=== PATIENT | female | born 1995 ===

== ENCOUNTER 2016-04-18 17:21 | Emergency (ER) | payer OTHER ==
[~2016-04-18] VITALS: Ht 162.6 cm; Wt 55.3 kg
[~2016-04-18 17:21] MED LIST: IBUP600T44 PO
[2016-04-18 17:34] VITALS: BP 116/87; PULSE 78; TEMP 37.2; O2SAT 99; Ht 162.6 cm; Wt 55.3 kg
--- NOTE | 2016-04-18 18:39 | DIAGNOSTIC IMAGING REPORT ---
RIGHT HAND 3 VIEWS CLINICAL HISTORY: Right hand injury. FINDINGS: 3 views of the right hand are obtained. No prior studies are available for comparison at the time of dictation. The skeletal structures are well mineralized. No fracture is seen. The joint spaces of the hand are well-maintained. Dorsal soft tissue edema is noted on the lateral view, greatest at the level of the metacarpal heads. IMPRESSION: Dorsal soft tissue swelling with no radiographic evidence of acute fracture. Electronically signed by: Byron Alex M.D. 04/18/2016 6:38 PM Dictated Date/Time: 04/18/2016 6:36 PM
--- NOTE | 2016-04-18 23:55 | EMERGENCY ROOM VISIT NOTE ---
ED Visit Note First contact with patient: 17:54 Chief Complaint: Right hand pain. History of Present Illness: Ms. Rosado is a 21-year-old female who ambulates into the ED accompanied by a male friend complaining of right hand pain over the second, third and fourth MCP joints. Patient reports she became mad last evening and punched a wall. Since that time she has been having pain and swelling of the right hand predominantly over the third MCP joint but the pain extends into the second and fourth MCP joint. She describes her pain as a combination of sharp and throbbing. She rates her discomfort 9/10. She has been using Tylenol without relief of her discomfort. Her pain worsens with palpation and flexion and extension of the second through fourth MCP joints. She has not identified any alleviating factors related to the pain. Associated with her pain she reports she has a mild tingling sensation in all her fingers excluding her thumb. Additionally she denies any previous significant injuries or surgeries to the right hand. Review of Systems: As noted above in history of present illness. Past Medical History: Status post cholecystectomy. Current Medications: Patient denies. Allergies to Medications: Patient denies. Social History: Patient is currently University student; she feels safe in her home environment; she denies tobacco and alcohol use. Physical Examination: Vital Signs: Date Time Temp Pulse Resp B/P Pulse Ox O2 Delivery O2 Flow Rate FiO2 04/18/16 17:34 37.2 78 18 116/87 99 Room Air GENERAL: 21-year-old female in mild to moderate distress due to pain, nontoxic- appearing, afebrile and hemodynamically stable. NEUROLOGICAL: Awake, alert and oriented to person, place and time. Answering questions appropriately and following commands. SKIN: Warm, dry and pink. No open soft tissue trauma noted. RIGHT HAND: No gross bony deformity. No tenderness over the distal forearm, wrist or hand. Moderate tenderness over the third MCP joint associated with swelling and early bruising. There is also mild tenderness over the second and fourth MCP joint without swelling, bony deformity or crepitus. Decreased range of motion in the index, middle and ring finger MCP joints. The fingers were warm and pink and capillary refill is brisk. She reported mild paresthesias during palpation but was able to distinguish light sensations. ED Course: Patient is assessed as noted above. Patient was given ice for pain and comfort; she refused pain medications multiple hands. Right Hand X-Rays: Were read by myself and the radiologist showing no acute fractures or dislocations. Patient was placed in an Ortho-Glass volar splint with fingers placed in position of comfort. Patient was educated about tonight's findings and instructed on her treatment plan; she verbalizes understanding and agreement with this plan. Clinical Impression: Right hand contusion. Disposition: Patient discharged home in stable condition accompanied by male friend; prior to departure she was reassessed and subjectively reported she was feeling better and rated her discomfort 2/10. Plan: Comfort measures were discussed with the patient. Patient was encouraged to follow-up with orthopedics if no better in 7-10 days. Patient was encouraged return ED for worsening/uncontrolled pain, uncontrolled swelling, worsening hand paresthesias, hand numbness or any new/concerning symptoms.
== END 2016-04-18 19:09 | disposition home or self-care (01) ==
LOC: C.EDB 17:23 → C.EDD 19:09
DX: S60.221A Contusion of right hand, initial encounter (principal); W22.8XXA Striking against or struck by other objects, initial encounter; Z90.49 Acquired absence of other specified parts of digestive tract

== ENCOUNTER 2016-04-27 21:21 | Emergency (ER) | payer OTHER ==
[~2016-04-27] VITALS: Ht 165.1 cm; Wt 55.2 kg
[2016-04-27 21:28] VITALS: TEMP 37.1; Ht 165.1 cm; Wt 55.2 kg
[2016-04-27] MEDS ORDERED: ONDANSETRON INJ 2 MG/ML 2 ML VIAL IV STA (22:21)
[2016-04-27] MEDS ORDERED: KETOROLAC TROMETHAMINE 30 MG/ML VIAL IV STA (22:21)
[2016-04-27] MEDS ORDERED: SODIUM CHLORIDE 0.9% 1000ML 1,000 ML IV STA (22:21)
--- NOTE | 2016-04-27 22:23 | EMERGENCY ROOM VISIT NOTE ---
History Report prepared by Shana: Pablo Horne Under the Supervision of: Dr. Timur Barrow M.D. First contact with patient: 21:38 Chief Complaint: VOMITING Stated Complaint: VOMITING Nursing Triage Summary: Patient c/o n/v that began this morning. History of Present Illness The patient is a 21 year old female who presents to the Emergency Room with complaints of vomiting that began this morning. The patient has been experiencing flu-like symptoms for the past couple of days, but came to the ED due to the vomiting. She has had rhinorrhea, a cough, and nausea. She vomits with any intake of food or fluids. Her last menstrual period was last week. She states that there is no chance she is . She denies any diarrhea. Source of History: patient Onset: this morning Position: other (GI) Symptom Intensity: mild Quality: other (vomiting) Timing: intermittent Associated Symptoms: + cough, + nausea, No diarrhea Note: She has rhinorrhea. Review of Systems See HPI for pertinent positives & negatives. A total of 10 systems reviewed and were otherwise negative. Past Medical & Surgical Medical Problems: (1) Bronchitis (2) Enteritis (3) Epigastric abdominal pain (4) Gastroenteritis (5) Leukocytosis (6) Mononucleosis (7) Nausea and vomiting in adult (8) Pancreatitis (9) Pancreatitis (10) Pancreatitis, acute (11) Vomiting Surgical Problems: (1) History of cholecystectomy Family History Hypertension Kidney disease Kidney stones Social History Smoking Status: Never Smoker Alcohol Use: none Drug Use: none Marital Status: single Housing Status: lives with roommate Occupation Status: [employer] student Current/Historical Medications Scheduled Ondasetron Odt (Zofran Odt), 4 MG SL Q6H Allergies Coded Allergies: No Known Allergies (Unverified , 02/18/16) Physical Exam Vital Signs Date Time Temp Pulse Resp B/P Pulse Ox O2 Delivery O2 Flow Rate FiO2 04/27/16 23:30 87 20 88/50 96 Room Air 04/27/16 21:28 37.1 104 18 101/64 96 Room Air Physical Exam GENERAL: Patient is a healthy-appearing well-nourished HEAD: Normocephalic atraumatic EYES: Ocular movements intact pupils equal and react to light OROPHARYNX mucous membranes are moist no exudates present no erythema or edema present NECK: Supple no nuchal rigidity CHEST: Good equal expansion LUNGS: Clear and equal to auscultation CARDIAC: Normal S1 and S2 ABDOMEN: Soft nontender no guarding BACK: No CVA tenderness EXTREMITIES: No pain upon palpation normal muscle strength in all groups no clubbing cyanosis or edema NEURO: Patient is following commands is answering questions appropriately. Alert and oriented x3 Cranial Nerves 2-12 grossly intact Medical Decision & Procedures ER Provider Diagnostic Interpretation: X-ray results as stated below per interpretation by me: 1 View Chest: No evidence of pneumonia, congestion, or pneumothorax. 2 View Abdomen: No evidence of free air. No obstruction. Moderate amount of stool throughout the colon. Laboratory Results 04/27/16 22:27 Red Blood Count 4.93, Mean Corpuscular Volume 84.2, Mean Corpuscular Hemoglobin 27.6, Mean Corpuscular Hemoglobin Concent 32.8, Mean Platelet Volume 10.6, Neutrophils (%) (Auto) 64.9, Lymphocytes (%) (Auto) 20.1, Monocytes (%) (Auto) 12.5, Eosinophils (%) (Auto) 2.0, Basophils (%) (Auto) 0.3, Neutrophils # (Auto ) 3.90, Lymphocytes # (Auto) 1.21, Monocytes # (Auto) 0.75, Eosinophils # (Auto ) 0.12, Basophils # (Auto) 0.02 04/27/16 22:27 Test 04/27/16 00:00 04/27/16 22:27 Urine Color YELLOW Urine Appearance TURBID (CLEAR) Urine pH >= 9.0 (4.5-7.5) Urine Specific [place] 1.022 (1.000-1.030) Urine Protein NEG (NEG) Urine Glucose (UA) NEG (NEG) Urine Ketones NEG (NEG) Urine Occult Blood NEG (NEG) Urine Nitrite NEG (NEG) Urine Bilirubin NEG (NEG) Urine Urobilinogen NEG (NEG) Urine Leukocyte Esterase NEG (NEG) Urine WBC (Auto) 1-5 /hpf (0-5) Urine RBC (Auto) 0-4 /hpf (0-4) Urine Hyaline Casts (Auto) 1-5 /lpf (0-5) Urine Epithelial Cells (Auto) >30 /lpf (0-5) Urine Bacteria (Auto) NEG (NEG) Urine Test NEG (NEG) White Blood Count 6.01 K/uL (4.8-10.8) Red Blood Count 4.93 M/uL (4.2-5.4) Hemoglobin 13.6 g/dL (12.0-16.0) Hematocrit 41.5 % (37-47) Mean Corpuscular Volume 84.2 fL (80-100) Mean Corpuscular Hemoglobin 27.6 pg (25-34) Mean Corpuscular Hemoglobin Concent 32.8 g/dl (32-36) Platelet Count 240 K/uL (130-400) Mean Platelet Volume 10.6 fL (7.4-10.4) Neutrophils (%) (Auto) 64.9 % Lymphocytes (%) (Auto) 20.1 % Monocytes (%) (Auto) 12.5 % Eosinophils (%) (Auto) 2.0 % Basophils (%) (Auto) 0.3 % Neutrophils # (Auto) 3.90 K/uL (1.4-6.5) Lymphocytes # (Auto) 1.21 K/uL (1.2-3.4) Monocytes # (Auto) 0.75 K/uL (0.11-0.59) Eosinophils # (Auto) 0.12 K/uL (0-0.5) Basophils # (Auto) 0.02 K/uL (0-0.2) RDW Standard Deviation 39.5 fL (36.4-46.3) RDW Coefficient of Variation 13.0 % (11.5-14.5) Immature Granulocyte % (Auto) 0.2 % Immature Granulocyte # (Auto) 0.01 K/uL (0.00-0.02) Anion Gap 9.0 mmol/L (3-11) Est Creatinine Clear Calc Drug Dose 102.9 ml/min Estimated GFR () 130.9 Estimated GFR (Non- 112.9 BUN/Creatinine Ratio 13.8 (10-20) Calcium Level 8.7 mg/dl (8.5-10.1) Total Bilirubin 0.3 mg/dl (0.2-1) Direct Bilirubin < 0.1 mg/dl (0-0.2) Aspartate Amino Transf (AST/SGOT) 13 U/L (15-37) Alanine Aminotransferase (ALT/SGPT) 17 U/L (12-78) Alkaline Phosphatase 46 U/L (45-117) Total Protein 7.1 gm/dl (6.4-8.2) Albumin 3.6 gm/dl (3.4-5.0) Lipase 167 U/L (73-393) Labs reviewed by ED physician. Medications Administered Medications (Trade) Dose Ordered Sig/Jenni Route Start Time Stop Time Status Last Admin Dose Admin Sodium Chloride (Nss 1000ml) 1,000 ml @ 999 mls/hr Q1H1M STAT IV 04/27/16 22:21 04/27/16 23:21 DC 04/27/16 22:40 999 MLS/HR Ketorolac Tromethamine (Toradol Inj) 30 mg NOW STAT IV 04/27/16 22:21 04/27/16 22:22 DC 04/27/16 22:40 30 MG Ondansetron HCl (Zofran Inj) 4 mg NOW STAT IV 04/27/16 22:21 04/27/16 22:22 DC 04/27/16 22:41 4 MG Ondansetron HCl (ZOFRAN ODT 4MG Home Pack) 1 homepack UD ONCE PO 04/27/16 23:30 04/27/16 23:31 DC 04/27/16 23:50 1 HOMEPACK ED Course 2138: Past medical records reviewed. The patient was evaluated in room B4. A complete history and physical examination was performed. 2221: Zofran Inj 4 mg IV, Toradol Inj 30 mg IV, Sodium Chloride 1000 ml @ 999 mls/hr IV 2330: Ondansetron HCl 1 homepack PO 2335: Upon reexamination the patient is resting. I discussed results and treatment plan with the patient. She verbalizes agreement and understanding. The patient is ready for discharge. Medical Decision Differential diagnosis: Etiologies such as appendicitis, diverticulitis, PUD, biliary pathology, UTI, pancreatitis, obstruction, mesenteric ischemia, aortic pathology, infections, inflammatory bowel disease, renal colic, as well as others were entertained. This is a 21-year-old female who presents emergency department complaining of nausea and vomiting. The patient was given normal saline bolus, Toradol Zofran in the emergency department. Repeat examination revealed much improvement patient's symptoms. The patient had serial abdominal examinations were performed on her in the emergency department and at no time did the patient exhibits abdominal tenderness. Based on these findings and using shared medical decision making the decision was made not to CAT scan the patient's abdomen due to the effects of radiation. In addition the patient has a normal urine, she is not , she does not have an elevation in her white blood count she has a normal liver kidney profile. The patient was able tolerate by mouth Gatorade in the emergency department. I believe she is well enough to be discharged home with Zofran. Patient was in agreement with the treatment plan. Impression Primary Impression: Vomiting Scribe Attestation The scribe's documentation has been prepared under my direction and personally reviewed by me in its entirety. I confirm that the note above accurately reflects all work, treatment, procedures, and medical decision making performed by me. Departure Information Dispostion Home / Self-Care Prescriptions Ondasetron Odt (ZOFRAN ODT) 4 Mg Tab 4 MG SL Q6H for Nausea, #6 TAB Prov: Timur Barrow MD 04/27/16 Referrals No Doctor, Assigned (PCP) Forms HOME CARE DOCUMENTATION FORM, IMPORTANT VISIT INFORMATION, School Instructions, Work Instructions Patient Instructions ED Diet Vomiting Diarrhea, ED Gastroenteritis Viral, [facility], Ondansetron Hydrochloride Oral tablet Additional Instructions You have been examined and treated today on an emergency basis only. This is not a substitute for, or an effort to provide, complete comprehensive medical care. It is impossible to recognize and treat all injuries or illnesses in a single emergency department visit. It is therefore important that you follow up closely with your PCP. Call as soon as possible for an appointment. Thank you for your time and consideration. I look forward to speaking with you again soon. Please don't hesitate to call us if you have any questions. Problem Qualifiers Primary Impression: Vomiting Vomiting type: unspecified Vomiting Intractability: non-intractable Nausea presence: with nausea Qualified Codes: R11.2 - Nausea with vomiting, unspecified
[2016-04-27 22:48] LABS: BASO % 0.3 %; BASO ABS # 0.02 K/uL (0-0.2); COMPLETE YES; HEMATOCRIT 41.5 % (37-47); IG% 0.2 %; LYMPH % 20.1 %; LYMPH ABS # 1.21 K/uL (1.2-3.4); MEAN CELL VOLUME 84.2 fL (80-100); MEAN CORPUSCULAR HEMOGLOBIN 27.6 pg (25-34); MEAN CORPUSCULAR HGB CONC 32.8 g/dl (32-36); MEAN PLATELET VOLUME 10.6 fL (7.4-10.4); MONO % 12.5 %; NEUT % 64.9 %; PLATELET COUNT 240 K/uL (130-400); RED BLOOD COUNT 4.93 M/uL (4.2-5.4); WHITE BLOOD COUNT 6.01 K/uL (4.8-10.8)
[2016-04-27 23:01] LABS: ALT/SGPT 17 U/L (12-78); BLOOD UREA NITROGEN 11 mg/dl (7-18); BUN/CREATININE RATIO 13.8 (10-20); CALCIUM 8.7 mg/dl (8.5-10.1); CARBON DIOXIDE 27 mmol/L (21-32); CHLORIDE 106 mmol/L (98-107); CREATININE 0.76 mg/dl (0.60-1.20); GLUCOSE 98 mg/dl (70-99); POTASSIUM 3.7 mmol/L (3.5-5.1); SODIUM 142 mmol/L (136-145)
[2016-04-27 23:04] LABS: ALKALINE PHOSPHATASE 46 U/L (45-117); AST/SGOT 13 U/L (15-37)
[2016-04-27 23:10] LABS: URINE APPEARANCE TURBID (CLEAR); URINE BILIRUBIN NEG (NEG); URINE COLOR YELLOW; URINE EPITHELIAL CELL AUTO >30 /lpf (0-5); URINE NITRITE NEG (NEG); URINE PH >= 9.0 (4.5-7.5); URINE SPECIFIC GRAVITY 1.022 (1.000-1.030); UROBILINOGEN NEG (NEG)
[2016-04-27 23:13] LABS: MANUAL MICROSCOPIC REQUIRED? NO; REVIEW REQ? NO
[2016-04-27] MEDS ORDERED: ONDA4TAB10 SL (23:27)
[2016-04-27 23:30] VITALS: BP 88/50; PULSE 87; O2SAT 96
[2016-04-27] MEDS ORDERED: ONDANSETRON HOME PACK 4MG OD TAB PO ONE (23:30)
--- NOTE | 2016-04-28 07:00 | DIAGNOSTIC IMAGING REPORT ---
ABDOMEN 2VIEW W/PA CHEST RTN CLINICAL HISTORY: Epigastric pain, nausea, vomiting, diarrhea. COMPARISON STUDY: Chest x-ray dated 02/18/2016 FINDINGS: The erect chest reveals no evidence of free air. There is no evidence of focal pulmonary consolidation.] Erect and supine views of the abdomen reveal no abnormally dilated loops of large or small bowel. There are no transition zone to indicate bowel obstruction. There are surgical clips within the right upper abdomen medially. There is a mild scoliosis. IMPRESSION: No evidence of bowel obstruction. No evidence of free air. Electronically signed by: Corwin Douglas M.D. 04/28/2016 6:58 AM Dictated Date/Time: 04/28/2016 6:58 AM
== END 2016-04-27 23:55 | disposition home or self-care (01) ==
LOC: C.EDB 21:23
DX: R11.2 Nausea with vomiting, unspecified (principal)

== ENCOUNTER 2016-08-09 01:43 | Inpatient (IN) | payer OTHER ==
[~2016-08-09] VITALS: Ht 165.1 cm; Wt 55.9 kg
[~2016-08-09 01:43] MED LIST changes: -IBUP600T44 PO; +ONDA4TAB10 SL
[2016-08-09] MEDS ORDERED: ONDANSETRON INJ 2 MG/ML 2 ML VIAL IV STA ×2 (02:09→05:28)
[2016-08-09] MEDS ORDERED: MoRPHine SULFATE 4 MG/ML 1 ML CARP\\VIAL IV ONE (02:15)
[2016-08-09] MEDS ORDERED: SODIUM CHLORIDE 0.9% 1000ML 1,000 ML IV ONE (02:15)
[2016-08-09 02:30] LABS: BASO % 0.2 %; BASO ABS # 0.02 K/uL (0-0.2); COMPLETE YES; EOS % 1.3 %; HEMATOCRIT 40.5 % (37-47); IG% 0.2 %; LYMPH ABS # 2.55 K/uL (1.2-3.4); MEAN CELL VOLUME 85.6 fL (80-100); MEAN CORPUSCULAR HEMOGLOBIN 28.1 pg (25-34); MEAN CORPUSCULAR HGB CONC 32.8 g/dl (32-36); MEAN PLATELET VOLUME 10.5 fL (7.4-10.4); MONO % 8.5 %; NEUT % 60.8 %; PLATELET COUNT 223 K/uL (130-400); RED BLOOD COUNT 4.73 M/uL (4.2-5.4); WHITE BLOOD COUNT 8.79 K/uL (4.8-10.8)
[2016-08-09 02:43] LABS: URINE APPEARANCE CLOUDY (CLEAR); URINE BILIRUBIN NEG (NEG); URINE COLOR DK YELLOW; URINE EPITHELIAL CELL AUTO >30 /lpf (0-5); URINE NITRITE NEG (NEG); URINE SPECIFIC GRAVITY 1.027 (1.000-1.030); UROBILINOGEN NEG (NEG); ZZUR CULT IF INDIC CLEAN CATCH NO
[2016-08-09 02:45] LABS: MANUAL MICROSCOPIC REQUIRED? NO; REVIEW REQ? YES
[2016-08-09 02:49] LABS: BUN/CREATININE RATIO 9.6 (10-20); CALCIUM 8.3 mg/dl (8.5-10.1); CREATININE 0.72 mg/dl (0.60-1.20); POTASSIUM 3.7 mmol/L (3.5-5.1)
[2016-08-09 02:52] LABS: ALB/GLOB RATIO 1.2 (0.9-2)
[2016-08-09 02:57] LABS: URINE MUCUS PRESENT (NONE PRSENT)
[2016-08-09] MEDS ORDERED: OPTIRAY 320 IV PRN (04:15)
--- NOTE | 2016-08-09 05:27 | EMERGENCY ROOM VISIT NOTE ---
History First contact with patient: 01:53 Chief Complaint: NAUSEA Stated Complaint: NAUSEA Nursing Triage Summary: Pt presents with sudden onset of N/V abdominal pain starting at 2000 last night. History of Present Illness The patient is a 21 year old female who presents to the Emergency Room with complaints of acute onset nausea, vomiting, and epigastric abdominal pain that began about 6 hours ago. The patient has a history of pancreatitis in the past. She is status post cholecystectomy a few years ago. She has not had fever or chills. Her vomiting is primarily water. She does not have lower abdominal pain. She denies chance of . She rates her discomfort a 7/ 10. Review of Systems More than 10 systems were reviewed and otherwise negative with the exception of history of present illness. Past Medical/Surgical History Medical Problems: (1) Bronchitis (2) Enteritis (3) Epigastric abdominal pain (4) Gastroenteritis (5) Leukocytosis (6) Mononucleosis (7) Nausea and vomiting in adult (8) Pancreatitis (9) Pancreatitis (10) Pancreatitis, acute (11) Vomiting Surgical Problems: (1) History of cholecystectomy Family History Hypertension Kidney disease Kidney stones Social History Smoking Status: Never Smoker Alcohol Use: none Drug Use: none Marital Status: single Housing Status: lives with roommate Occupation Status: [employer] student Current/Historical Medications No Active Prescriptions or Reported Meds Allergies Coded Allergies: No Known Allergies (Unverified , 08/09/16) Physical Exam Vital Signs Date Time Temp Pulse Resp B/P (MAP) Pulse Ox O2 Delivery O2 Flow Rate FiO2 08/09/16 05:16 80 18 119/58 97 Room Air 08/09/16 03:18 75 18 99/51 95 Room Air 08/09/16 01:47 36.9 90 18 110/69 96 Room Air Physical Exam VITALS: Vitals are noted on the nurse's note and reviewed by myself. Vital signs stable. GENERAL: Well-developed, well-nourished, female who is mildly uncomfortable appearing. Patient is cooperative with the examination. HEAD: Normocephalic atraumatic. HEART: Regular rate and rhythm without murmurs gallops or rubs. LUNGS: Clear to auscultation bilaterally without wheezes, rales or rhonchi. No retractions or accessory muscle use. ABDOMEN: Positive normal bowel sounds x 4. Soft with epigastric abdominal pain. No CVA tenderness. No lower abdominal tenderness. MUSCULOSKELETAL: No muscle atrophy, erythema, or edema noted. Full range of motion without joint tenderness in all extremities. Medical Decision & Procedures Laboratory Results 08/09/16 02:20 Red Blood Count 4.73, Mean Corpuscular Volume 85.6, Mean Corpuscular Hemoglobin 28.1, Mean Corpuscular Hemoglobin Concent 32.8, Mean Platelet Volume 10.5, Neutrophils (%) (Auto) 60.8, Lymphocytes (%) (Auto) 29.0, Monocytes (%) (Auto) 8.5, Eosinophils (%) (Auto) 1.3, Basophils (%) (Auto) 0.2, Neutrophils # (Auto) 5.34, Lymphocytes # (Auto) 2.55, Monocytes # (Auto) 0.75, Eosinophils # (Auto) 0.11, Basophils # (Auto) 0.02 08/09/16 02:20 Test 08/09/16 02:20 White Blood Count 8.79 K/uL (4.8-10.8) Red Blood Count 4.73 M/uL (4.2-5.4) Hemoglobin 13.3 g/dL (12.0-16.0) Hematocrit 40.5 % (37-47) Mean Corpuscular Volume 85.6 fL (80-100) Mean Corpuscular Hemoglobin 28.1 pg (25-34) Mean Corpuscular Hemoglobin Concent 32.8 g/dl (32-36) Platelet Count 223 K/uL (130-400) Mean Platelet Volume 10.5 fL (7.4-10.4) Neutrophils (%) (Auto) 60.8 % Lymphocytes (%) (Auto) 29.0 % Monocytes (%) (Auto) 8.5 % Eosinophils (%) (Auto) 1.3 % Basophils (%) (Auto) 0.2 % Neutrophils # (Auto) 5.34 K/uL (1.4-6.5) Lymphocytes # (Auto) 2.55 K/uL (1.2-3.4) Monocytes # (Auto) 0.75 K/uL (0.11-0.59) Eosinophils # (Auto) 0.11 K/uL (0-0.5) Basophils # (Auto) 0.02 K/uL (0-0.2) RDW Standard Deviation 41.2 fL (36.4-46.3) RDW Coefficient of Variation 13.1 % (11.5-14.5) Immature Granulocyte % (Auto) 0.2 % Immature Granulocyte # (Auto) 0.02 K/uL (0.00-0.02) Urine Color DK YELLOW Urine Appearance CLOUDY (CLEAR) Urine pH 6.0 (4.5-7.5) Urine Specific [place] 1.027 (1.000-1.030) Urine Protein NEG (NEG) Urine Glucose (UA) NEG (NEG) Urine Ketones TRACE (NEG) Urine Occult Blood NEG (NEG) Urine Nitrite NEG (NEG) Urine Bilirubin NEG (NEG) Urine Urobilinogen NEG (NEG) Urine Leukocyte Esterase NEG (NEG) Urine WBC (Auto) 1-5 /hpf (0-5) Urine RBC (Auto) 5-10 /hpf (0-4) Urine Hyaline Casts (Auto) 10-30 /lpf (0-5) Urine Epithelial Cells (Auto) >30 /lpf (0-5) Urine Bacteria (Auto) NEG (NEG) Urine Pathogenic Casts /lpf (0) Urine Mucus PRESENT (NONE PRSENT) Urine Test NEG (NEG) Anion Gap 8.0 mmol/L (3-11) Est Creatinine Clear Calc Drug Dose 110.0 ml/min Estimated GFR () 139.7 Estimated GFR (Non- 120.6 BUN/Creatinine Ratio 9.6 (10-20) Calcium Level 8.3 mg/dl (8.5-10.1) Total Bilirubin 0.4 mg/dl (0.2-1) Aspartate Amino Transf (AST/SGOT) 31 U/L (15-37) Alanine Aminotransferase (ALT/SGPT) 26 U/L (12-78) Alkaline Phosphatase 41 U/L (45-117) Total Protein 6.7 gm/dl (6.4-8.2) Albumin 3.6 gm/dl (3.4-5.0) Globulin 3.1 gm/dl (2.5-4.0) Albumin/Globulin Ratio 1.2 (0.9-2) Amylase Level 172 U/L (25-115) Lipase 2209 U/L (73-393) Medications Administered Medications (Trade) Dose Ordered Sig/Jenni Route Start Time Stop Time Status Last Admin Dose Admin Sodium Chloride 1,000 ml @ 999 mls/hr Q1H1M ONCE IV 08/09/16 02:15 08/09/16 03:15 DC 08/09/16 02:28 999 MLS/HR Ondansetron HCl (Zofran Inj) 4 mg NOW STAT IV 08/09/16 02:09 08/09/16 02:10 DC 08/09/16 02:28 4 MG ED Course Physical exam and history were performed. Nursing notes and EMR were reviewed. Patient appears to have epigastric abdominal pain for the past several hours. She has a history of pancreatitis and states this feels similar to previous episodes. IV access was established and labs were obtained. The patient was hydrated and medicated as above. The patient's blood work is without a significantly elevated white blood cell count, gross anemia, or significant electrolyte imbalance. Her amylase and lipase are elevated which is consistent with acute pancreatitis. Clinically this does correlate with the patient's discomfort. Overall the patient does not appear stable for discharge home. Her case was discussed with the on-call hospitalist, who agreed to evaluate her here in the department. Please see their dictation for further patient course, plan, and disposition. The chart was completed utilizing [employer] Speech Voice Recognition Software. Grammatical errors, random word insertions, pronoun errors, and incomplete sentences are an occasional consequence of this system due to software limitations, ambient noise, and hardware issues. Any formal questions or concerns about the content, text, or information contained within the body of this dictation should be directly addressed to the provider for clarification. . Medical Decision Differential diagnosis: Etiologies such as appendicitis, diverticulitis, PUD, biliary pathology, UTI, pancreatitis, obstruction, mesenteric ischemia, aortic pathology, infections, inflammatory bowel disease, renal colic, as well as others were entertained. Impression Primary Impression: Pancreatitis, acute Departure Information Prescriptions No Active Prescriptions or Reported Meds Referrals No Doctor, Assigned (PCP) [facility] Instructions [facility]
[2016-08-09] MEDS ORDERED: ACETAMINOPHEN 325 MG TAB PO PRN (05:45)
[2016-08-09] MEDS ORDERED: KETOROLAC TROMETHAMINE 30 MG/ML VIAL IV PRN (05:45)
[2016-08-09] MEDS ORDERED: MoRPHine SULFATE 2 MG/ML CARP IV PRN (05:45)
[2016-08-09] MEDS ORDERED: ONDANSETRON INJ 2 MG/ML 2 ML VIAL IV PRN (05:45)
[2016-08-09] MEDS ORDERED: MoRPHine SULFATE 4 MG/ML 1 ML CARP\\VIAL IV PRN (05:45)
--- NOTE | 2016-08-09 05:49 | History and Physical ---
History & Physical Date & Time of Service: Aug 09, 2016 at 05:41 Chief Complaint: Nausea Primary Care Physician: No Doctor, Assigned History of Present Illness Source: patient The patient is a 21-year-old female who developed acute onset of nausea, vomiting and abdominal pain about 6 hours prior to arrival. She has a past medical history of cholecystectomy in March 2014, which at that time had associated pancreatitis. She has had a few cases of pancreatitis since that time, but her symptoms today along with elevated pancreatic enzymes are the most significant since her cholecystectomy. She has not had any different food intakes, she has not had any recent travel or any sick exposures. Past Medical/Surgical History Medical Problems: (1) Bronchitis Status: Resolved (2) Epigastric abdominal pain Status: Resolved (3) Leukocytosis Status: Resolved (4) Mononucleosis Status: Resolved (5) Nausea and vomiting in adult Status: Resolved (6) Pancreatitis Status: Chronic (7) Pancreatitis Status: Chronic (8) Pancreatitis, acute Status: Chronic (9) Vomiting Status: Resolved Surgical Problems: (1) History of cholecystectomy Status: Resolved Family History Hypertension Kidney disease Kidney stones Social History Smoking Status: Never Smoker Smokeless Tobacco Use: No Alcohol Use: none Drug Use: none Marital Status: single Occupational Status: [employer] student Multi-Drug Resistant Organisms History of MDRO: No Allergies Coded Allergies: No Known Allergies (Unverified , 08/09/16) Home Medications No Active Prescriptions or Reported Meds Review of Systems The patient denies chest pain, palpitations, shortness of breath, cough, lower extremity swelling, vision change, hearing change, sore throat, fevers, chills, sweats, weight change, fatigue, blood in urine or stool, dysuria, urinary frequency or urgency, lightheadedness, dizziness, headache, memory loss, rash, abnormal bruising or bleeding, imbalance, focal or generalized weakness, numbness or tingling in arms or legs, arthralgias or myalgias, back or neck pain , night sweats, or allergy symptoms. The review of systems is otherwise negative other than for that already noted above, and at least 10 systems have been reviewed. Physical Exam Vital Signs Date Time Temp Pulse Resp B/P (MAP) Pulse Ox O2 Delivery O2 Flow Rate FiO2 08/09/16 05:16 80 18 119/58 97 Room Air 08/09/16 03:18 75 18 99/51 95 Room Air 08/09/16 01:47 36.9 90 18 110/69 96 Room Air The patient is awake, well-developed and adequately nourished, alert and oriented 3, normocephalic and atraumatic, lying in bed and in no acute distress. HEENT--PERRL, EOMI, mucous membranes and oropharynx dry. Neck--supple, no JVD or bruits, thyroid normal, trachea midline, no adenopathy. Heart--normal S1 and S2, no extra beats, no murmurs, rubs or gallops. Lungs--clear bilaterally with good air movement, no respiratory distress, no accessory muscle use. Abdomen--normal bowel sounds and soft, mildly tender epigastric area, nondistended, no hernias or masses, no organomegaly. Extremities--no cyanosis, clubbing or edema. There are good distal pulses b/l. Dermatologic--normal skin turgor, normal color, warm and dry, no abnormal lymph nodes, no rash. Neurologic--cranial nerves II through XII grossly intact, motor and sensory examination normal. Rheumatologic--normal range of motion, nontender, muscles and joints. Psychiatric--normal affect. Diagnostics Laboratory Results Results Past 24 Hours Test 08/09/16 02:20 Range/Units White Blood Count 8.79 4.8-10.8 K/uL Red Blood Count 4.73 4.2-5.4 M/uL Hemoglobin 13.3 12.0-16.0 g/dL Hematocrit 40.5 37-47 % Mean Corpuscular Volume 85.6 80-100 fL Mean Corpuscular Hemoglobin 28.1 25-34 pg Mean Corpuscular Hemoglobin Concent 32.8 32-36 g/dl Platelet Count 223 130-400 K/uL Mean Platelet Volume 10.5 7.4-10.4 fL Neutrophils (%) (Auto) 60.8 % Lymphocytes (%) (Auto) 29.0 % Monocytes (%) (Auto) 8.5 % Eosinophils (%) (Auto) 1.3 % Basophils (%) (Auto) 0.2 % Neutrophils # (Auto) 5.34 1.4-6.5 K/uL Lymphocytes # (Auto) 2.55 1.2-3.4 K/uL Monocytes # (Auto) 0.75 0.11-0.59 K/uL Eosinophils # (Auto) 0.11 0-0.5 K/uL Basophils # (Auto) 0.02 0-0.2 K/uL RDW Standard Deviation 41.2 36.4-46.3 fL RDW Coefficient of Variation 13.1 11.5-14.5 % Immature Granulocyte % (Auto) 0.2 % Immature Granulocyte # (Auto) 0.02 0.00-0.02 K/uL Urine Color DK YELLOW Urine Appearance CLOUDY CLEAR Urine pH 6.0 4.5-7.5 Urine Specific [place] 1.027 1.000-1.030 Urine Protein NEG NEG Urine Glucose (UA) NEG NEG Urine Ketones TRACE NEG Urine Occult Blood NEG NEG Urine Nitrite NEG NEG Urine Bilirubin NEG NEG Urine Urobilinogen NEG NEG Urine Leukocyte Esterase NEG NEG Urine WBC (Auto) 1-5 0-5 /hpf Urine RBC (Auto) 5-10 0-4 /hpf Urine Hyaline Casts (Auto) 10-30 0-5 /lpf Urine Epithelial Cells (Auto) >30 0-5 /lpf Urine Bacteria (Auto) NEG NEG Urine Pathogenic Casts 0 /lpf Urine Mucus PRESENT NONE PRSENT Urine Test NEG NEG Sodium Level 143 136-145 mmol/L Potassium Level 3.7 3.5-5.1 mmol/L Chloride Level 109 98-107 mmol/L Carbon Dioxide Level 26 21-32 mmol/L Anion Gap 8.0 3-11 mmol/L Blood Urea Nitrogen 7 7-18 mg/dl Creatinine 0.72 0.60-1.20 mg/dl Est Creatinine Clear Calc Drug Dose 110.0 ml/min Estimated GFR () 139.7 Estimated GFR (Non- 120.6 BUN/Creatinine Ratio 9.6 10-20 Random Glucose 80 70-99 mg/dl Calcium Level 8.3 8.5-10.1 mg/dl Total Bilirubin 0.4 0.2-1 mg/dl Aspartate Amino Transf (AST/SGOT) 31 15-37 U/L Alanine Aminotransferase (ALT/SGPT) 26 12-78 U/L Alkaline Phosphatase 41 45-117 U/L Total Protein 6.7 6.4-8.2 gm/dl Albumin 3.6 3.4-5.0 gm/dl Globulin 3.1 2.5-4.0 gm/dl Albumin/Globulin Ratio 1.2 0.9-2 Amylase Level 172 25-115 U/L Lipase 2209 73-393 U/L Impression Assessment and Plan Recurrent pancreatitis--the patient will be admitted to the medical surgical floor. She'll be primarily kept nothing by mouth, with occasional sips of clear liquid. She is status post cholecystectomy in March 2014, which did help relieve a significant portion of her episodes of pancreatitis. CT of the abdomen and pelvis is negative, other than for the possibility of enteritis. We will order an MRCP to assess for possible choledocholithiasis. We'll consult gastroenterology. We'll place on normal saline with potassium chloride 20 mEq at 100 ML's per hour, Zofran 4 mg IV every 6 hours when necessary, Toradol 30 mg IV every 6 hours when necessary, morphine sulfate 2-4 mg IV every 2 hours when necessary. Level of Care Med/Surg Advanced Directives Existing Advance Directive: No Existing Living Will: No Existing Power of Site Promotion Agent: No Resuscitation Status FULL RESUSCITATION VTE Prophylaxis VTE Risk Assessment Done? Y/N: Yes Risk Level: Low Given or contraindicated: SCD's Social Service Consult None Apply
[2016-08-09 06:07] VITALS: BP 113/70; PULSE 88; TEMP 36.8; Ht 165.1 cm; Wt 55.9 kg
--- NOTE | 2016-08-09 07:09 | DIAGNOSTIC IMAGING REPORT ---
CT SCAN OF THE ABDOMEN AND PELVIS WITH IV CONTRAST CLINICAL HISTORY: Generalized abdominal pain. Nausea and vomiting. COMPARISON STUDY: Abdominal radiographs dated 08/09/2016. Abdominal CT dated 12/26/2015. TECHNIQUE: Following the IV administration of 93 cc of Optiray 320, CT scan of the abdomen and pelvis is performed from the lung bases to the proximal femora. Images are reviewed in the axial, sagittal, and coronal planes. IV contrast was administered without complication. Automated dose control exposure was utilized. CT DOSE: 281.19 mGy.cm FINDINGS: Lung bases: The heart is normal in size and without pericardial effusion. The lung bases are clear. Liver: The contrast-enhanced liver is normal in size, contour, and attenuation. There is no intrahepatic biliary ductal dilatation. The hepatic veins and portal veins are patent. Gallbladder: Surgically absent noting clips in the gallbladder fossa. Spleen: Normal in size and attenuation. Pancreas: Unremarkable. Adrenal glands: Unremarkable. Kidneys: The contrast enhanced kidneys are normal in size and without hydronephrosis. The kidneys enhance symmetrically. Abdominal vasculature: The abdominal aorta is normal in course and caliber. Bowel: The small bowel and colon are normal in course and caliber. The appendix is well-visualized and normal. Peritoneum: There is no intraperitoneal free air or abdominal ascites. Lymphadenopathy: None. Pelvic viscera: The bladder is normal as visualized. A bicornuate or septate uterus is suggested. No adnexal lesion is seen. There small bilateral ovarian follicles. Free fluid is seen in the cul-de-sac. Skeletal structures: No lytic or blastic lesions are seen. IMPRESSION: 1. There are no acute infectious or inflammatory findings in the abdomen or pelvis. 2. There is a small volume of free fluid in the cul-de-sac, likely within physiologic limits. 3. A bicornuate or septated uterus is suggested. Electronically signed by: Byron Alex M.D. 08/09/2016 7:08 AM Dictated Date/Time: 08/09/2016 7:04 AM
--- NOTE | 2016-08-09 07:38 | DIAGNOSTIC IMAGING REPORT ---
PA CHEST WITH ABDOMINAL SERIES CLINICAL HISTORY: Epigastric abdominal pain. Nausea. FINDINGS: A PA chest radiograph is compared to study dated . The cardiomediastinal silhouette is unremarkable. The lungs and pleural spaces are clear. No pneumothorax is seen. The bony thorax is grossly intact. Supine and erect abdominal radiograph are correlated with abdominal CT dated 12/26/2015. There is a nonobstructed abdominal bowel gas pattern. No evidence of intraperitoneal free air is seen. There are no abnormal abdominal calcifications. Mild to moderate colonic fecal retention is observed. Cholecystectomy clips are identified. The lumbosacral spine and bony pelvis appear intact. IMPRESSION: 1. No active disease in the chest. 2. Nonobstructed abdominal bowel gas pattern. Electronically signed by: Byron Alex M.D. 08/09/2016 7:36 AM Dictated Date/Time: 08/09/2016 7:35 AM
[2016-08-09 08:06] VITALS: BP 92/59; PULSE 74; TEMP 36.8; O2SAT 99
[2016-08-09 08:45] VITALS: O2SAT 99
[2016-08-09] MEDS: NSS + 20MEQ KCL 1000ML 1,000 ML IV SCH ×2 (08:45→16:11)
[2016-08-09] MEDS: PANTOprazole INJ 40 MG in SYRINGE 0 ML IV SCH (11:29)
[2016-08-09 12:23] VITALS: BP 88/54; PULSE 69; TEMP 36.7; O2SAT 98
--- NOTE | 2016-08-09 15:07 | DIAGNOSTIC IMAGING REPORT ---
MRCP CLINICAL HISTORY: Nausea and vomiting. Epigastric abdominal pain. COMPARISON STUDY: Abdominal CT dated 08/09/2016. TECHNIQUE: Abdominal MRCP is performed using various T2-weighted sequences in the axial and coronal planes. IV contrast was not administered for this examination. 3-D reformats are created and assessed. FINDINGS: The gallbladder surgically absent. There is no intra or extrahepatic biliary ductal dilatation. The common bile duct is normal in caliber measuring up to 4.5 mm. There are no filling defects identified to suggest choledocholithiasis. The pancreatic duct is normal in caliber. The liver, spleen, pancreas, adrenal glands, and kidneys are normal as imaged. There is no abdominal ascites. No pleural effusion is identified. No upper abdominal lymphadenopathy is seen. IMPRESSION: Unremarkable MRCP noting status post cholecystectomy. Electronically signed by: Byron Alex M.D. 08/09/2016 3:06 PM Dictated Date/Time: 08/09/2016 3:02 PM
[2016-08-09 15:38] VITALS: BP 97/63; PULSE 72; TEMP 36.7; O2SAT 99
--- NOTE | 2016-08-09 16:35 | Medical Consult ---
Consultation Note Date of Service Aug 09, 2016. Consultation Note Reason for consult: pancreatitis History of Present Illness Source: patient 21 yo F with PMH sig for recurrent acute panc, now admitted with abd pain. Regarding her pancreatitis - Dec 2013 and Mar 2014, she was hosp with lipase and LFT elevation; imaging did not show devonte dil, although uls did show sludge and MRCP was concerning for possible divisum. She underwent aurora in Mar 2014; path from aurora did not show stones; cholangiogram was normal. She reports improvement in her symptoms post aurora, but she had subsequent ER visits in Apr 2015 and Dec for n/v/ abd pain - lipase normal at that time, although LFT 's mildly increased. Althoug she is generally pain free, she has brief episodes of upper abdominal pain approx once a month. She now is admitted with abrupt onset of upper abdominal pain, n/v that began earlier today and is similar to her prior episodes of pancreatitis. In ER, lipase elevated, LFT's normal, vs normal, BUN normal, CT without devonte dil. Denies any alcohol. No herbals or med changes. Denies marijuana. Past Medical/Surgical History Medical Problems: Bronchitis, mono Surgical Problems: (1) History of cholecystectomy Status: Resolved Family History Hypertension Kidney disease Kidney stones Social History Smoking Status: Never Smoker Smokeless Tobacco Use: No Alcohol Use: none Drug Use: none Marital Status: single Occupational Status: [employer] student Multi-Drug Resistant Organisms History of MDRO: No Allergies Coded Allergies: No Known Allergies (Unverified , 08/09/16) Home Medications No Active Prescriptions or Reported Meds Review of Systems The patient denies chest pain, palpitations, shortness of breath, cough, lower extremity swelling, vision change, hearing change, sore throat, fevers, chills, sweats, weight change, fatigue, blood in urine or stool, dysuria, urinary frequency or urgency, lightheadedness, dizziness, headache, memory loss, rash, abnormal bruising or bleeding, imbalance, focal or generalized weakness, numbness or tingling in arms or legs, arthralgias or myalgias, back or neck pain , night sweats, or allergy symptoms. The review of systems is otherwise negative other than for that already noted above, and at least 10 systems have been reviewed. Physical Ex - H&P Physical Exam Vital Signs Date Time Temp Pulse Resp B/P (MAP) Pulse Ox O2 Delivery O2 Flow Rate FiO2 08/09/16 05:16 80 18 119/58 97 Room Air 08/09/16 03:18 75 18 99/51 95 Room Air 08/09/16 01:47 36.9 90 18 110/69 96 Room Air The patient is awake, well-developed and adequately nourished, alert and oriented 3, normocephalic and atraumatic, lying in bed and in no acute distress. HEENT--PERRL, EOMI, mucous membranes and oropharynx dry. Neck--supple, no JVD or bruits, thyroid normal, trachea midline, no adenopathy. Heart--normal S1 and S2, no extra beats, no murmurs, rubs or gallops. Lungs--clear bilaterally with good air movement, no respiratory distress, no accessory muscle use. Abdomen--normal bowel sounds and soft, mildly tender epigastric area, nondistended, no hernias or masses, no organomegaly. Extremities--no cyanosis, clubbing or edema. There are good distal pulses b/l. Dermatologic--normal skin turgor, normal color, warm and dry, no abnormal lymph nodes, no rash. Neurologic--cranial nerves II through XII grossly intact, motor and sensory examination normal. Rheumatologic--normal range of motion, nontender, muscles and joints. Psychiatric--normal affect. Diagnostics - H&P Diagnostics Laboratory Results Results Past 24 Hours Test 08/09/16 02:20 Range/Units White Blood Count 8.79 4.8-10.8 K/uL Red Blood Count 4.73 4.2-5.4 M/uL Hemoglobin 13.3 12.0-16.0 g/dL Hematocrit 40.5 37-47 % Mean Corpuscular Volume 85.6 80-100 fL Mean Corpuscular Hemoglobin 28.1 25-34 pg Mean Corpuscular Hemoglobin Concent 32.8 32-36 g/dl Platelet Count 223 130-400 K/uL Mean Platelet Volume 10.5 7.4-10.4 fL Neutrophils (%) (Auto) 60.8 % Lymphocytes (%) (Auto) 29.0 % Monocytes (%) (Auto) 8.5 % Eosinophils (%) (Auto) 1.3 % Basophils (%) (Auto) 0.2 % Neutrophils # (Auto) 5.34 1.4-6.5 K/uL Lymphocytes # (Auto) 2.55 1.2-3.4 K/uL Monocytes # (Auto) 0.75 0.11-0.59 K/uL Eosinophils # (Auto) 0.11 0-0.5 K/uL Basophils # (Auto) 0.02 0-0.2 K/uL RDW Standard Deviation 41.2 36.4-46.3 fL RDW Coefficient of Variation 13.1 11.5-14.5 % Immature Granulocyte % (Auto) 0.2 % Immature Granulocyte # (Auto) 0.02 0.00-0.02 K/uL Urine Color DK YELLOW Urine Appearance CLOUDY CLEAR Urine pH 6.0 4.5-7.5 Urine Specific [place] 1.027 1.000-1.030 Urine Protein NEG NEG Urine Glucose (UA) NEG NEG Urine Ketones TRACE NEG Urine Occult Blood NEG NEG Urine Nitrite NEG NEG Urine Bilirubin NEG NEG Urine Urobilinogen NEG NEG Urine Leukocyte Esterase NEG NEG Urine WBC (Auto) 1-5 0-5 /hpf Urine RBC (Auto) 5-10 0-4 /hpf Urine Hyaline Casts (Auto) 10-30 0-5 /lpf Urine Epithelial Cells (Auto) >30 0-5 /lpf Urine Bacteria (Auto) NEG NEG Urine Pathogenic Casts 0 /lpf Urine Mucus PRESENT NONE PRSENT Urine Test NEG NEG Sodium Level 143 136-145 mmol/L Potassium Level 3.7 3.5-5.1 mmol/L Chloride Level 109 98-107 mmol/L Carbon Dioxide Level 26 21-32 mmol/L Anion Gap 8.0 3-11 mmol/L Blood Urea Nitrogen 7 7-18 mg/dl Creatinine 0.72 0.60-1.20 mg/dl Est Creatinine Clear Calc Drug Dose 110.0 ml/min Estimated GFR () 139.7 Estimated GFR (Non- 120.6 BUN/Creatinine Ratio 9.6 10-20 Random Glucose 80 70-99 mg/dl Calcium Level 8.3 8.5-10.1 mg/dl Total Bilirubin 0.4 0.2-1 mg/dl Aspartate Amino Transf (AST/SGOT) 31 15-37 U/L Alanine Aminotransferase (ALT/SGPT) 26 12-78 U/L Alkaline Phosphatase 41 45-117 U/L Total Protein 6.7 6.4-8.2 gm/dl Albumin 3.6 3.4-5.0 gm/dl Globulin 3.1 2.5-4.0 gm/dl Albumin/Globulin Ratio 1.2 0.9-2 Amylase Level 172 25-115 U/L Lipase 2209 73-393 U/L CT reviewed - it is normal. Impression - H&P Impression Assessment and Plan Recurrent pancreatitis - Her pancreatitis appears mild, without ecvidence of hemoconcentration. Rec LR at 200 overnight, diet as tolerated, analgesia as needed. The etiology of her pancreatitis is unclear. Her presentations in 04/23 and of abdominal pain and LFt elevation are suspicious for SOD 2, although her description of pain that improved post aurora may argue against this. Her prior MRCP suggested p divisum, which may also be a possible cause. It is unlikely that she has choledocholithiasis at the moment, given her normal LFTs. Agree with MRCP to look for divisum; can consider further discussion regarding possibility of SOD once acute episode is resolved.
[2016-08-09] MEDS: D5W AND LACTATED RINGERS 1,000 ML IV SCH ×2 (18:14→22:23)
[2016-08-10 00:05] VITALS: BP 98/64; PULSE 59; O2SAT 100
[2016-08-10] MEDS: D5W AND LACTATED RINGERS 1,000 ML IV SCH ×3 (03:48→14:59)
[2016-08-10 06:29] LABS: BASO % 0.2 %; BASO ABS # 0.01 K/uL (0-0.2); COMPLETE YES; EOS % 2.2 %; HEMATOCRIT 36.8 % (37-47); IG% 0.2 %; LYMPH % 37.1 %; LYMPH ABS # 2.34 K/uL (1.2-3.4); MEAN CELL VOLUME 85.8 fL (80-100); MEAN CORPUSCULAR HEMOGLOBIN 27.7 pg (25-34); MEAN CORPUSCULAR HGB CONC 32.3 g/dl (32-36); MEAN PLATELET VOLUME 10.5 fL (7.4-10.4); MONO % 7.1 %; NEUT % 53.2 %; PLATELET COUNT 208 K/uL (130-400); RED BLOOD COUNT 4.29 M/uL (4.2-5.4)
[2016-08-10 06:59] LABS: BUN/CREATININE RATIO 3.6 (10-20); CALCIUM 8.2 mg/dl (8.5-10.1); CREATININE 0.65 mg/dl (0.60-1.20); POTASSIUM 3.6 mmol/L (3.5-5.1)
[2016-08-10 07:39] VITALS: BP 98/64; PULSE 76; TEMP 36.9; O2SAT 100
[2016-08-10 08:30] VITALS: O2SAT 100
--- NOTE | 2016-08-10 09:27 | Gastroenterology Progress Note ---
Progress Note Date of Service: Aug 10, 2016 Subjective Pt evaluation today including: conversation w/ patient, physical exam Pt was seen and examined this AM. She feels well and would like to be discharged. Tolerated clear liquid diet last night and this AM for breakfast. No nausea, vomiting or abdominal pain. No fever, chills, chest pain, SOB. No BM since admission. MRCP: The gallbladder surgically absent. There is no intra or extrahepatic biliary ductal dilatation. The common bile duct is normal in caliber measuring up to 4.5 mm. There are no filling defects identified to suggest choledocholithiasis. The pancreatic duct is normal in caliber. The liver, spleen , pancreas, adrenal glands, and kidneys are normal as imaged. There is no abdominal ascites. No pleural effusion is identified. No upper abdominal lymphadenopathy is seen. Unremarkable MRCP noting status post cholecystectomy. Review of Systems Constitutional: No fever, No chills Respiratory: No cough Abdomen: + constipation, No pain, No nausea, No vomiting, No diarrhea Medications Current Inpatient Medications Medications (Trade) Dose Ordered Sig/Jenni Route Start Time Stop Time Status Last Admin Dose Admin Ioversol (Optiray 320) 100 ml UD PRN IV 08/09/16 04:15 08/13/16 04:14 Acetaminophen (Tylenol Tab) 650 mg Q4H PRN PO 08/09/16 05:45 09/08/16 05:44 08/09/16 22:58 650 MG Pantoprazole Sodium 40 mg/ Syringe 10 ml @ 5 mls/min DAILY@11 IV 08/09/16 11:00 09/08/16 10:59 08/09/16 11:29 5 MLS/MIN Ketorolac Tromethamine (Toradol Inj) 30 mg Q6H PRN IV 08/09/16 05:45 08/14/16 05:44 Ondansetron HCl (Zofran Inj) 4 mg Q6H PRN IV 08/09/16 05:45 09/08/16 05:44 Morphine Sulfate (MoRPHine SULFATE INJ) 2 mg Q2H PRN IV 08/09/16 05:45 08/23/16 05:44 Morphine Sulfate (MoRPHine SULFATE INJ) 4 mg Q2H PRN IV 08/09/16 05:45 08/23/16 05:44 Dextrose/Lactated Ringer's 1,000 ml @ 200 mls/hr Q5H IV 08/09/16 17:45 09/08/16 17:44 08/10/16 08:28 200 MLS/HR Objective Vital Signs Date Time Temp Pulse Resp B/P (MAP) Pulse Ox O2 Delivery O2 Flow Rate FiO2 08/10/16 08:30 100 Room Air 08/10/16 07:39 36.9 76 15 98/64 (75) 100 08/10/16 00:05 59 20 98/64 (75) 100 Room Air 08/10/16 00:00 Room Air 08/09/16 16:30 Room Air 08/09/16 15:38 36.7 72 15 97/63 (74) 99 Room Air 08/09/16 12:23 36.7 69 15 88/54 (65) 98 Room Air Physical Exam General Appearance: no apparent distress Eyes: PERRL ENT: hearing grossly normal Neck: supple Respiratory/Chest: lungs clear, normal breath sounds, no respiratory distress, no accessory muscle use Cardiovascular: regular rate, rhythm, no gallop, no JVD Abdomen: normal bowel sounds, non tender, soft, no organomegaly, no pulsatile mass Neurologic/Psych: alert, normal mood/affect, oriented x 3 Skin: normal color, no jaundice Laboratory Results Last 24 Hours Test 08/10/16 06:20 White Blood Count 6.30 K/uL Red Blood Count 4.29 M/uL Hemoglobin 11.9 g/dL Hematocrit 36.8 % Mean Corpuscular Volume 85.8 fL Mean Corpuscular Hemoglobin 27.7 pg Mean Corpuscular Hemoglobin Concent 32.3 g/dl Platelet Count 208 K/uL Mean Platelet Volume 10.5 fL Neutrophils (%) (Auto) 53.2 % Lymphocytes (%) (Auto) 37.1 % Monocytes (%) (Auto) 7.1 % Eosinophils (%) (Auto) 2.2 % Basophils (%) (Auto) 0.2 % Neutrophils # (Auto) 3.35 K/uL Lymphocytes # (Auto) 2.34 K/uL Monocytes # (Auto) 0.45 K/uL Eosinophils # (Auto) 0.14 K/uL Basophils # (Auto) 0.01 K/uL RDW Standard Deviation 40.3 fL RDW Coefficient of Variation 12.8 % Immature Granulocyte % (Auto) 0.2 % Immature Granulocyte # (Auto) 0.01 K/uL Sodium Level 144 mmol/L Potassium Level 3.6 mmol/L Chloride Level 109 mmol/L Carbon Dioxide Level 30 mmol/L Anion Gap 5.0 mmol/L Blood Urea Nitrogen 2 mg/dl Creatinine 0.65 mg/dl Est Creatinine Clear Calc Drug Dose 121.8 ml/min Estimated GFR () 148.1 Estimated GFR (Non- 127.8 BUN/Creatinine Ratio 3.6 Random Glucose 107 mg/dl Calcium Level 8.2 mg/dl Magnesium Level 2.0 mg/dl Total Bilirubin 0.6 mg/dl Direct Bilirubin 0.1 mg/dl Aspartate Amino Transf (AST/SGOT) 13 U/L Alanine Aminotransferase (ALT/SGPT) 19 U/L Alkaline Phosphatase 34 U/L Total Protein 5.9 gm/dl Albumin 3.2 gm/dl Amylase Level 78 U/L Lipase 161 U/L Assessment and Plan Ms. Rosado is a 21 year old female with recurrent pancreatitis - s/p cholecystectomy & denies ETOH use. On admission, VSS stable, LFTs normal with elevated lipase. Started on LR 200 and NPO with pain control. There is a questionable history of pancreatic divisum - outpatient EUS did not occur. Long discussion with Dr. Russell, Ms. Rosado and her friend - she is more willing to undergo EUS and ERCP if needed at a tertiary care center, maybe even back home. Advance diet to as tolerated - low fat diet continue LR 200 ml/hr x 48 hours Pain medications PRN Antiemetics PRN Miralax daily No GI contraindication to discharge if patient is able to tolerate advancing diet. I performed a history and physical examination of the patient. I have discussed the patient's case, impression and plan with NAV Lopez on 08/10/16. Her note reflects my findings and plan. Patient should have an evaluation at tertiary center for anatomic or genetic causes of pancreatitis. This was discussed with patient and "friend" at bedside. Paul Russell MD
[2016-08-10] MEDS: PANTOprazole INJ 40 MG in SYRINGE 0 ML IV SCH (11:59)
--- NOTE | 2016-08-10 14:55 | Medical Student: [facility] ---
Med Student Progress Note Date of Service Aug 10, 2016. Subjective This is a 21 y/o female with pmh of cholecystecomty and recurrent pancreatitis who had been admitted for acute pancreatitis. Today she is feeling better and tolerating a liquid diet. She denies nausea, vomiting, diarrhea, abdominal pain. She has not had a bowel movement since admission but is urinating without difficulty. She is ambulating and feeling well overall and would like to be discharged. She denies fever, chills, nightsweats. She does have a mild headache. All other systems reviewed and negative. Review of Systems Constitutional: No fever, No chills Respiratory: No cough Cardiac: No chest pain Female : No dysuria Objective Vital Signs Date Time Temp Pulse Resp B/P (MAP) Pulse Ox O2 Delivery O2 Flow Rate FiO2 08/10/16 08:30 100 Room Air 08/10/16 07:39 36.9 76 15 98/64 (75) 100 08/10/16 00:05 59 20 98/64 (75) 100 Room Air 08/10/16 00:00 Room Air 08/09/16 16:30 Room Air 08/09/16 15:38 36.7 72 15 97/63 (74) 99 Room Air Physical Exam General Appearance: WD/WN, no apparent distress Neck: supple, no adenopathy, thyroid normal Respiratory/Chest: chest non-tender, lungs clear, normal breath sounds Cardiovascular: regular rate, rhythm, no edema Abdomen: normal bowel sounds, non tender (mild epigastric tenderness on palpation ), soft Extremities: normal range of motion Neurologic/Psychiatric: alert, normal mood/affect, oriented x 3 Skin: normal color, no rash Laboratory Results Last 24 Hours Test 08/10/16 06:20 White Blood Count 6.30 K/uL Red Blood Count 4.29 M/uL Hemoglobin 11.9 g/dL Hematocrit 36.8 % Mean Corpuscular Volume 85.8 fL Mean Corpuscular Hemoglobin 27.7 pg Mean Corpuscular Hemoglobin Concent 32.3 g/dl Platelet Count 208 K/uL Mean Platelet Volume 10.5 fL Neutrophils (%) (Auto) 53.2 % Lymphocytes (%) (Auto) 37.1 % Monocytes (%) (Auto) 7.1 % Eosinophils (%) (Auto) 2.2 % Basophils (%) (Auto) 0.2 % Neutrophils # (Auto) 3.35 K/uL Lymphocytes # (Auto) 2.34 K/uL Monocytes # (Auto) 0.45 K/uL Eosinophils # (Auto) 0.14 K/uL Basophils # (Auto) 0.01 K/uL RDW Standard Deviation 40.3 fL RDW Coefficient of Variation 12.8 % Immature Granulocyte % (Auto) 0.2 % Immature Granulocyte # (Auto) 0.01 K/uL Sodium Level 144 mmol/L Potassium Level 3.6 mmol/L Chloride Level 109 mmol/L Carbon Dioxide Level 30 mmol/L Anion Gap 5.0 mmol/L Blood Urea Nitrogen 2 mg/dl Creatinine 0.65 mg/dl Est Creatinine Clear Calc Drug Dose 121.8 ml/min Estimated GFR () 148.1 Estimated GFR (Non- 127.8 BUN/Creatinine Ratio 3.6 Random Glucose 107 mg/dl Calcium Level 8.2 mg/dl Magnesium Level 2.0 mg/dl Total Bilirubin 0.6 mg/dl Direct Bilirubin 0.1 mg/dl Aspartate Amino Transf (AST/SGOT) 13 U/L Alanine Aminotransferase (ALT/SGPT) 19 U/L Alkaline Phosphatase 34 U/L Total Protein 5.9 gm/dl Albumin 3.2 gm/dl Amylase Level 78 U/L Lipase 161 U/L Assessment and Plan Assessment and Plan: This is a 21 year old with previous cholecystectomy and recurrent pancreatitis who has been admitted for acute pancreatitis. Overall she is feeling well and would like to be discharged. 1. Acute pancreatitis, recurrent pancreatitis -Full liquid diet, low-fat diet as tolerated. May introduce solids as tolerated in next few days. -Continue IV LR 100 mL/hr. -MRCP unremarkable.. -Appreciate GI consult. May set up for outpatient GI follow up and consider ERCP in future to assess for stones or structural abnormalities. -If tolerates diet, may consider discharge. -Pain medication PRN
[2016-08-10 15:31] VITALS: BP 97/60; PULSE 75; TEMP 36.8; O2SAT 97
[2016-08-10] MEDS ORDERED: ONDA4TAB46 PO (15:47)
--- NOTE | 2016-08-10 15:56 | Discharge Instructions ---
Discharge Instructions Date of Service Aug 10, 2016. Admission Reason for Admission: Pancreatitis Discharge Discharge Diagnosis / Problem: Acute Pancreatitis Discharge Goals Goal(s): Decrease discomfort, Diagnostic testing, Prevent Disease Progression Activity Recommendations Activity Limitations: per Instructions/Follow-up section Lifting Limitations: gradually increase as tolerated Exercise/Sports Limitations: as tolerated May Resume Sexual Activity: when tolerated Shower/Bathe: no limitations Driving or Machine Use: no limitations Instructions / Follow-Up Instructions / Follow-Up You have been hospitalized for acute pancreatitis. This has unfortunately been a recurrent problem for you in previous years. We treated you with a combination of IV fluids, pain medication as needed, and bowel rest. Your lipase level was 2200 on arrival an improved remarkably at discharge to 161. You made an excellent recovery over a 24 hour period and we felt you could be discharged home. As you go home please do the following: - It is very important that you continue to stay well hydrated. - Advance your diet gradually. Continue with low fat, full-fluid diet for 48 hours then you may begin to slowly incorporate solid foods, such as rice, bread , bananas, applesauce. - We will discharge you with a small amount of Zofran to be taken as needed if you ever had nausea. - If you have any abdominal pain at home, you can use Tylenol or Motrin as needed (use only as directed) - We will arrange for you to have a follow-up with gastroenterology to determine if you further evaluation. Given that pancreatitis has been a recurrent problem, we strongly recommend that you consider establishing care with a primary care physician in the area. If you are looking for a primary care provider, you contact Dr. Reji Killian, [facility] at [phone]. If your symptoms fail to improve, acutely worsen, please seek medical attention immediately by either calling your primary care provider or going to your nearest emergency department. Otherwise, please see your primary care provider in 3-5 days to ensure that your symptoms continue to improve. It was a pleasure to be involved in your care and we wish you all the best. Current Hospital Diet Patient's current hospital diet: Low Fat Diet, Full Liquid Diet Discharge Diet Recommended Diet: Full Liquid Diet, Low Fat Diet Procedures Procedures Performed: MCRP-unremarkable; did not reveal any residual stones. Pending Studies Studies pending at discharge: no Laboratory Results Last 24 Hours Test 08/10/16 06:20 White Blood Count 6.30 K/uL Red Blood Count 4.29 M/uL Hemoglobin 11.9 g/dL Hematocrit 36.8 % Mean Corpuscular Volume 85.8 fL Mean Corpuscular Hemoglobin 27.7 pg Mean Corpuscular Hemoglobin Concent 32.3 g/dl Platelet Count 208 K/uL Mean Platelet Volume 10.5 fL Neutrophils (%) (Auto) 53.2 % Lymphocytes (%) (Auto) 37.1 % Monocytes (%) (Auto) 7.1 % Eosinophils (%) (Auto) 2.2 % Basophils (%) (Auto) 0.2 % Neutrophils # (Auto) 3.35 K/uL Lymphocytes # (Auto) 2.34 K/uL Monocytes # (Auto) 0.45 K/uL Eosinophils # (Auto) 0.14 K/uL Basophils # (Auto) 0.01 K/uL RDW Standard Deviation 40.3 fL RDW Coefficient of Variation 12.8 % Immature Granulocyte % (Auto) 0.2 % Immature Granulocyte # (Auto) 0.01 K/uL Sodium Level 144 mmol/L Potassium Level 3.6 mmol/L Chloride Level 109 mmol/L Carbon Dioxide Level 30 mmol/L Anion Gap 5.0 mmol/L Blood Urea Nitrogen 2 mg/dl Creatinine 0.65 mg/dl Est Creatinine Clear Calc Drug Dose 121.8 ml/min Estimated GFR () 148.1 Estimated GFR (Non- 127.8 BUN/Creatinine Ratio 3.6 Random Glucose 107 mg/dl Calcium Level 8.2 mg/dl Magnesium Level 2.0 mg/dl Total Bilirubin 0.6 mg/dl Direct Bilirubin 0.1 mg/dl Aspartate Amino Transf (AST/SGOT) 13 U/L Alanine Aminotransferase (ALT/SGPT) 19 U/L Alkaline Phosphatase 34 U/L Total Protein 5.9 gm/dl Albumin 3.2 gm/dl Amylase Level 78 U/L Lipase 161 U/L Medical Emergencies . Who to Call and When: Medical Emergencies: If at any time you feel your situation is an emergency, please call 911 immediately. . Non-Emergent Contact Non-Emergency issues call your: Primary Care Provider (May follow up with Dr. Reji Killian in clinic ) Call Non-Emergent contact if: your pain is not controlled, your pain is worsening . Past History Medical & Surgical History: (1) Pancreatitis, acute (2) History of cholecystectomy . "Provider Documentation" section prepared by Reji Killian. Attending Attestation: Pt seen and discharge care plan d/w PGY2 Dr. Reji Killian on day of discharge. I agree with his discharge instructions as outlined. Yfn Oneal MD . VTE Core Measure Inpt VTE Proph given/why not?: SCD's
[2016-08-10 16:25] VITALS: BP 97/60; PULSE 75; TEMP 36.8; O2SAT 97
--- NOTE | 2016-08-10 17:29 | Discharge Summary ---
Discharge Summary Date of Service Aug 10, 2016. (Reji Killian MD) Discharge Summary Admission Date: Aug 09, 2016 at 04:59 Discharge Date: Aug 10, 2016 Discharge Disposition: Home Principal Diagnosis: Acute Pancreatitis Problems/Secondary Diagnoses: (1) Pancreatitis, acute Status: Chronic Procedures: MRCP CLINICAL HISTORY: Nausea and vomiting. Epigastric abdominal pain. COMPARISON STUDY: Abdominal CT dated 08/09/2016. TECHNIQUE: Abdominal MRCP is performed using various T2-weighted sequences in the axial and coronal planes. IV contrast was not administered for this examination. 3-D reformats are created and assessed. FINDINGS: The gallbladder surgically absent. There is no intra or extrahepatic biliary ductal dilatation. The common bile duct is normal in caliber measuring up to 4.5 mm. There are no filling defects identified to suggest choledocholithiasis. The pancreatic duct is normal in caliber. The liver, spleen, pancreas, adrenal glands, and kidneys are normal as imaged. There is no abdominal ascites. No pleural effusion is identified. No upper abdominal lymphadenopathy is seen. IMPRESSION: Unremarkable MRCP noting status post cholecystectomy. Electronically signed by: Byron Alex M.D. CT SCAN OF THE ABDOMEN AND PELVIS WITH IV CONTRAST CLINICAL HISTORY: Generalized abdominal pain. Nausea and vomiting. COMPARISON STUDY: Abdominal radiographs dated 08/09/2016. Abdominal CT dated 12/26/2015. TECHNIQUE: Following the IV administration of 93 cc of Optiray 320, CT scan of the abdomen and pelvis is performed from the lung bases to the proximal femora. Images are reviewed in the axial, sagittal, and coronal planes. IV contrast was administered without complication. Automated dose control exposure was utilized. CT DOSE: 281.19 mGy.cm FINDINGS: Lung bases: The heart is normal in size and without pericardial effusion. The lung bases are clear. Liver: The contrast-enhanced liver is normal in size, contour, and attenuation. There is no intrahepatic biliary ductal dilatation. The hepatic veins and portal veins are patent. Gallbladder: Surgically absent noting clips in the gallbladder fossa. Spleen: Normal in size and attenuation. Pancreas: Unremarkable. Adrenal glands: Unremarkable. Kidneys: The contrast enhanced kidneys are normal in size and without hydronephrosis. The kidneys enhance symmetrically. Abdominal vasculature: The abdominal aorta is normal in course and caliber. Bowel: The small bowel and colon are normal in course and caliber. The appendix is well-visualized and normal. Peritoneum: There is no intraperitoneal free air or abdominal ascites. Lymphadenopathy: None. Pelvic viscera: The bladder is normal as visualized. A bicornuate or septate uterus is suggested. No adnexal lesion is seen. There small bilateral ovarian follicles. Free fluid is seen in the cul-de-sac. Skeletal structures: No lytic or blastic lesions are seen. IMPRESSION: 1. There are no acute infectious or inflammatory findings in the abdomen or pelvis. 2. There is a small volume of free fluid in the cul-de-sac, likely within physiologic limits. 3. A bicornuate or septated uterus is suggested. Consultations: Gastroenterology 08/10/2016 Ms. Rosado is a 21 year old female with recurrent pancreatitis - s/p cholecystectomy & denies ETOH use. On admission, VSS stable, LFTs normal with elevated lipase. Started on LR 200 and NPO with pain control. There is a questionable history of pancreatic divisum - outpatient EUS did not occur. Long discussion with Dr. Russell, Ms. Rosado and her friend - she is more willing to undergo EUS and ERCP if needed at a tertiary care center, maybe even back home. Advance diet to as tolerated - low fat diet continue LR 200 ml/hr x 48 hours Pain medications PRN Antiemetics PRN Miralax daily No GI contraindication to discharge if patient is able to tolerate advancing diet. (Reji Killian MD) Medication Reconciliation New Medications: Ondansetron Hcl (Zofran) 4 Mg Tab 4 MG PO TID PRN for Nausea for 7 Days, #14 TAB NS Discharge Exam A 10 point review of systems was negative unless in the hospital course Physical Exam: General Appearance: WD/WN, no apparent distress Eyes: normal inspection, EOMI ENT: hearing grossly normal, + nasal congestion Neck: supple, thyroid normal Respiratory/Chest: lungs clear, no respiratory distress Cardiovascular: regular rate, rhythm, no gallop, no murmur Abdomen / GI: normal bowel sounds, non tender, soft Extremities: no calf tenderness, no pedal edema Neurologic/Psychiatric: key account executive II-XII nml as tested, no motor/sensory deficits , alert, normal mood/affect, oriented x 3 Skin: normal color, warm/dry, no rash Lymphatic: no adenopathy (Reji Killian MD) Hospital Course Very pleasant 21 year old female presenting with recurrent episode of pancreatitis. History is remarkable for episodes of pancreatitis both in Dec 2013 and March 2014 with hospital management. MRCP was concerning for pancreatic divisum. She ultimately had cholecystectomy in Mar 2014. Unfortunately she experience symptomatic recurrence with nausea, vomiting and abdominal pain for which she visited the ED in Apr and Dec 2015. Interestingly at that, time, she did not have an elevated lipase but did have a mild transaminitis. On this occasion, she presented with abdominal pain nausea and vomiting. Lipase was elevated at 2200 without accompanying transaminitis. Her hospital course was as follows: Acute Pancreatitis - History reviewed Denies alcohol use Calcium low/normal at 8.3 Triglycerides were not repeat on this occasion but noted to be normal in 2013 - Treated with IV rehydration, PRN Morphine and bowel rest - GI consulted MRCP as noted above; previous MRCP suspicious for possible divisum though this was not established with repeat MRCP Recommend possible ERCP - Patient discharged with GI f/u to discuss proceeding with ERCP - Lipase normalized to 160s on discharge - Patient initially NPO; advanced to clear liquid diet which she tolerated; then to full liquid diet Discharged with instruction to continue liquid diet for 48 hours then progress to low fat, low residue diet - Patient discharged with short course of Zofran 4 mg PRN for nausea. Follow-up - Patient was encouraged to establish care with PCP. Contact information for Dr. Reji Killian's clinic given to patient - Scheduled outpatient GI follow; discharge summary to be sent to Drs. Russell and Dr. Le The patient was discharged home in stable condition Total Time Spent: Less than 30 minutes This includes examination of the patient, discharge planning, medication reconciliation, and communication with other providers. (Reji Killian MD) Attending Discharge Note & Attestation: Pt seen/examined, chart reviewed, discharge care plan d/w PGY2 Dr. Reji Killian. I agree w/ the slade components of his discharge summary. 21yo female with h/o recurrent pancreatitis - etiology uncertain - who was admitted with abdominal pain due to acute pancreatitis. Symptoms improved quickly and biochemically her lipase/ amylase completely normalized prior to discharge. Was tolerating full liquids without GI symptoms prior to discharge. Seen by GI - MRCP recommended - this was entirely normal. Outpatient EUS and/or ERCP also recommended to patient. Slow advancement of diet following discharge advised. Other common causes of pancreatitis - hypercalcemia, hypertriglyceridemia, medications, etc - ruled out. Discharge exam - gen - nad eyes - no icterus skin - no icterus heart - RRR, s1, s2 lungs - CTA b/l abd - soft, NT, ND, BS+, no HSM ext - no edema mouth - MMM Patient to have GI follow-up within 1 week to arrange additional outpatient testing. Yfn Oneal MD (Yfn Oneal MD) Discharge Instructions Please refer to the electronic Patient Visit Report (Discharge Instructions) for additional information. (Reji Killian MD) Follow-Up PCP in 1 week GI referral to be made (Reji Killian MD) Additional Copies To Dayne Noble D.O.; Gio Le M.D.; Paul Russell MD; Reji Killian MD
== END 2016-08-10 17:30 | disposition home or self-care (01) | DRG 440 ==
LOC: C.EDB 01:43 → C.4E 04:59 → ENRESERV 05:39
PROVIDERS: ADMIT Hospitalist; ATTEND Internal Medicine
DX: K85.90 Acute pancreatitis without necrosis or infection, unspecified (principal); Z82.49 Family history of ischemic heart disease and other diseases of the circulatory system; Z84.1 Family history of disorders of kidney and ureter

== ENCOUNTER 2017-07-10 22:32 | Emergency (ER) | payer OTHER ==
[~2017-07-10] VITALS: Ht 162.6 cm; Wt 60.8 kg
[~2017-07-10 22:32] MED LIST changes: -ONDA4TAB10 SL; +ONDA4TAB46 PO
[2017-07-10 22:36] VITALS: TEMP 36.7; Ht 162.6 cm; Wt 60.8 kg
--- NOTE | 2017-07-10 23:42 | EMERGENCY ROOM VISIT NOTE ---
History Report prepared by Shana: Donna Abdul Under the Supervision of: Dr. Akua Fuentes D.O. First contact with patient: 23:04 Chief Complaint: OTHER COMPLAINT Stated Complaint: VAGINAL PAIN, AND BREAST DISCOLORATION History of Present Illness The patient is a 22 year old female who presents to the Emergency Room with complaints of persistent vaginal pain that started a few hours ago. The patient rates her pain a 8/10 in severity. The patient reports there is itching on her vagina. She states there is a white discharge coming from vagina. The patient notes she is still a virgin. She states "it hurts around the opening and I am unable to sit properly." She also reports that her breasts were a purple/pink color but it is gone now in the ED. She denies any new products that would have come in contact with her vagina. She reports she had oral sex recently as well as manual stimulation. Pt denies headache, change in vision, fevers, chest pain , shortness of breath, nausea, vomiting, diarrhea, pain with urination, and melena. Source of History: patient Onset: few hours ago Position: pelvis Symptom Intensity: 8/10 Timing: other (persistent) Associated Symptoms: No fevers, No chills, No headache, No chest pain, No SOB, No nausea, No vomiting, No abdominal pain, No melena, No diarrhea, No urinary symptoms Review of Systems See HPI for pertinent positives & negatives. A total of 10 systems reviewed and were otherwise negative. Past Medical & Surgical Medical Problems: (1) Bronchitis (2) Enteritis (3) Epigastric abdominal pain (4) Gastroenteritis (5) Leukocytosis (6) Mononucleosis (7) Nausea and vomiting in adult (8) Pancreatitis (9) Pancreatitis (10) Pancreatitis, acute (11) Vomiting Surgical Problems: (1) History of cholecystectomy Family History Hypertension Kidney disease Kidney stones Social History Smoking Status: Never Smoker Alcohol Use: none Drug Use: none Marital Status: single Housing Status: lives with roommate Occupation Status: [employer] student Current/Historical Medications Scheduled Metronidazole (Flagyl), 500 MG PO BID Allergies Coded Allergies: No Known Allergies (Unverified , 08/09/16) Physical Exam Vital Signs Date Time Temp Pulse Resp B/P (MAP) Pulse Ox O2 Delivery O2 Flow Rate FiO2 07/11/17 00:33 70 18 128/78 99 07/10/17 22:36 36.7 85 18 130/89 98 Room Air Physical Exam GENERAL: alert, well appearing, well nourished, no distress, non-toxic LUNGS: Clear to auscultation. Normal chest wall mechanics HEART: no murmurs, S1 normal and S2 normal ABDOMEN: abdomen soft, non-tender, normo-active bowel sounds, no masses, no rebound or guarding. SKIN: no rashes and no bruising UPPER EXTREMITIES: upper extremities are grossly normal. LOWER EXTREMITIES: No pitting edema. NEURO EXAM: Normal sensorium, cranial nerves II-XII [grossly] intact, normal speech, no [gross] weakness of arms, no [gross] weakness of legs. [No drift. Finger to nose intact. Gross sensation intact.] : Normal external genitalia, due to roman catholic and cultural reasons the patient declined use of speculum or swabs, small amount of white thick discharge consistent with yeast infection noted, mild irritation noted on medial aspect of the labia minora bilaterally, no vesicles, no bleeding, no other rashes or sores noted, no evidence of folliculitis, no inguinal lymphadenopathy. Medical Decision & Procedures Medications Administered Medications (Trade) Dose Ordered Sig/Jenni Route Start Time Stop Time Status Last Admin Dose Admin Fluconazole (Diflucan Tab) 150 mg NOW ONCE PO 07/11/17 00:00 07/11/17 00:01 DC 07/10/17 23:59 150 MG Metronidazole (Flagyl Tab) 500 mg NOW STAT PO 07/10/17 23:48 07/10/17 23:52 DC 07/10/17 23:59 500 MG ED Course 2320: The patient was evaluated in room A11B. A complete history and physical exam was performed. 2348: Flagyl Tab 500 mg PO. 0000: Diflucan Tab 150 mg PO. 0030: Upon reevaluation, the patient is feeling better. I discussed the findings and the treatment plan with the patient. She verbalizes agreement and understanding. She was discharged home. Medical Decision Differential Diagnosis: Gonorrhea, chlamydia, bacterial vaginosis, yeast infection, syphilis, folliculitis, trichomonas, PID, TOA, UTI. Patient very nervous and anxious regarding her complaint and exam. Patient refused most aspects of pelvic exam due to her roman catholic and cultural concerns to maintain her virginity for marriage. Discussed with patient the limitations of this regarding accurate diagnosing and testing. Patient verbalized understanding. Discussed with patient likely causes of her complaints following visual inspection. Discussed treatment, symptoms to watch and return for, explained all aspects of a routine pelvic exam and Pap smear to her and the reasons for such, discussed follow-up with SHERIFF should she have any other concerns. Discussed if she does not seek additional care if her symptoms persist that she may have long-term complications which could affect her fertility. Patient with no abdominal pain or back pain, no fevers or chills, I do not suspect PID, TOA, UTI, pyelonephritis, bacteremia/sepsis, or other occult GI infection. Medication Reconcilliation Current Medication List: was personally reviewed by me Impression Primary Impression: Vaginal irritation Additional Impression: Yeast vaginitis Scribe Attestation The scribe's documentation has been prepared under my direction and personally reviewed by me in its entirety. I confirm that the note above accurately reflects all work, treatment, procedures, and medical decision making performed by me. Departure Information Dispostion Home / Self-Care Prescriptions Metronidazole (FLAGYL) 500 Mg Tab 500 MG PO BID, #14 TAB Prov: Akua Fuentes, DO 07/11/17 Referrals No Doctor, Assigned (PCP) Patient Instructions My [facility] Additional Instructions Please do not engage in oral sex or manual stimulation until your symptoms have resolved. Please take the antibiotic for one week until completed. Please consider eating yogurt or using a probiotic while you are on antibiotics. If you have any persistent pain, persistent discharge, develop abdominal pain, back pain, fevers/chills, abnormal bleeding, or you have any other new or concerning symptoms, please return to the emergency room. If you are sexually active, you should be getting routine yearly pelvic exams by your landscaper helper. Problem Qualifiers
[2017-07-10] MEDS ORDERED: METRONIDAZOLE 250 MG TAB PO STA (23:48)
[2017-07-11] MEDS ORDERED: FLUCONAZOLE 50 MG TAB PO ONE
[2017-07-11] MEDS ORDERED: METR500T PO (00:22)
[2017-07-11 00:33] VITALS: BP 128/78; PULSE 70; O2SAT 99
== END 2017-07-11 00:33 | disposition home or self-care (01) ==
LOC: C.EDB 22:33 → C.EDA 07-11 00:33
DX: N89.8 Other specified noninflammatory disorders of vagina (principal); B37.3 Candidiasis of vulva and vagina